=== PATIENT | female | born 1995 | race Hispanic/Latino ===

== ENCOUNTER 2018-08-22 23:29 | Emergency (ER) | payer OTHER ==
[~2018-08-22] VITALS: Ht 160 cm; Wt 66.7 kg
--- OUTSIDE RECORDS SUMMARY | 2018-08-22 23:32 | XMS REPORT ---
Author Author [facility] Address Unknown Phone Unavailable Care Team Providers [employer] Name Role Phone Unavailable Unavailable Payers Payer Name Policy Type Policy Number Effective Date Expiration Date Problems This patient has no known problems. Allergies, Adverse Reactions, Alerts Allergy Name Allergy Type Status Severity Reaction(s) Onset Date Inactive Date Treating Clinician Comments No Known Allergies DA Active U 2016-04-06 00:00:00 Medications This patient has no known medications.
== END 2018-08-23 01:28 | disposition home or self-care (01) ==
LOC: FSED 23:29 → EDBD 23:29 → FSED 08-23 01:28
DX: O26.892 Other specified pregnancy related conditions, second trimester (principal); R50.9 Fever, unspecified; J11.1 Influenza due to unidentified influenza virus with other respiratory manifestations; J31.0 Chronic rhinitis
CPT/HCPCS: 83518; 87400; 99283

== ENCOUNTER 2020-10-12 22:15 | Emergency (ER) | payer OTHER ==
[~2020-10-12] VITALS: Ht 160 cm; Wt 77.1 kg
[2020-10-12] MEDS ORDERED: TAMIFLU75 MG PO (23:04)
== END 2020-10-12 23:53 | disposition home or self-care (01) ==
LOC: FSED 22:40
DX: R05 Cough (principal); J10.1 Influenza due to other identified influenza virus with other respiratory manifestations; M79.10 Myalgia, unspecified site
CPT/HCPCS: 83518; 87400; 99283